=== PATIENT | female | born 1960 | race Two or more races ===

== ENCOUNTER 2024-04-06 19:00 | Emergency (ER) | payer OTHER ==
[~2024-04-06] VITALS: Ht 165.1 cm; Wt 50.3 kg
[2024-04-06 19:07] VITALS: TEMP 101.5
[2024-04-06 19:34] LABS: BASOPHILS # (AUTO) 0.1 K/uL (0.0-0.2); BASOPHILS % (AUTO) 0.5 % (0.0-2.0); EOSINOPHILS % (AUTO) 0.3 % (0.0-6.0); HEMATOCRIT 33 % (33-45); HEMOGLOBIN 11.1 g/dL (11.5-14.8); LYMPHOCYTES # (AUTO) 1.5 K/uL (0.8-4.8); LYMPHOCYTES % (AUTO) 10.2 % (20.0-44.0); MEAN CORPUSCULAR HEMOGLOBIN 29 PG (26.0-33.0); MEAN CORPUSCULAR HGB CONC 33 g/dl (31.0-36.0); MEAN CORPUSCULAR VOLUME 85 fL (82-100); MONOCYTES # (AUTO) 1.5 K/uL (0.1-1.30); MONOCYTES % (AUTO) 10.2 % (2.0-12.0); NEUTROPHILS # (AUTO) 11.6 K/uL (1.8-8.9); NEUTROPHILS % (AUTO) 78.8 % (43.0-81.0); PLATELET COUNT (AUTO) 299 K/uL (150-450); RED CELL DISTRIBUTION WIDTH 12.9 % (11.5-15.0); WHITE BLOOD COUNT (AUTO) 14.7 K/uL (4.3-11.0)
[2024-04-06 19:43] LABS: CALCIUM, SERUM 8.5 mg/dL (8.5-10.1); CARBON DIOXIDE 24 mmol/L (21-32); CHLORIDE 104 mmol/L (98-107); CREATININE 0.6 mg/dL (0.6-1.3); GLUCOSE 130 mg/dL (74-106); POTASSIUM 3.5 mmol/L (3.5-5.1); SODIUM SERUM 136 mmol/L (136-145); UREA NITROGEN, BLOOD 5 mg/dL (7-18)
[2024-04-06 19:46] LABS: INR 0.99 (0.91-1.10); PARTIAL THROMBOPLASTIN TIME 23.6 SEC (24.3-34.3); PROTHROMBIN TIME 10.2 SECS (9.2-11.1)
[2024-04-06] MEDS: IV NS 0.9% 1,000 ML BAG IV ONE (19:50)
[2024-04-06] MEDS: ACETAMINOPHEN ES 500 MG TABLET PO ONE (19:50)
[2024-04-06] MEDS: ONDANSETRON HCL/PF 4 MG/2 ML VIAL IVP ONE (19:50)
[2024-04-06 19:52] LABS: LACTIC ACID 0.7 mmol/L (0.4-2.0)
[2024-04-06 19:54] LABS: ALANINE AMINOTRANSFERASE 24 U/L (12-78); ALBUMIN 3.3 g/dL (3.4-5.0); ALKALINE PHOSPHATASE 84 U/L (46-116); ASPARTATE AMINOTRANSFERASE 17 U/L (15-37); BILIRUBIN,DIRECT 0.2 mg/dL (0.0-0.2); BILIRUBIN,TOTAL 0.5 mg/dL (0.2-1.0); TOTAL PROTEIN, SERUM 8.2 g/dL (6.4-8.2)
[2024-04-06] MEDS ORDERED: CEFTRIAXONE 1GM BAG (ER ONLY) 50 ML IV ONE (21:38)
[2024-04-06] MEDS ORDERED: AZITHROMYCIN 500 MG VIAL ONE (21:38)
[2024-04-06] MEDS: CEFTRIAXONE 1GM BAG (ER ONLY) 50 ML IV ONE (21:47)
[2024-04-06] MEDS ORDERED: ONDANSETRON HCL/PF 4 MG/2 ML VIAL ONE (22:16)
[2024-04-06] MEDS: ONDANSETRON HCL/PF 4 MG/2 ML VIAL IV ONE (22:20)
[2024-04-06] MEDS: AZITHROMYCIN 500 MG in IV D5W 250 ML IV ONE (22:22)
[2024-04-06] MEDS ORDERED: ONDA4TAB5 PO (22:25)
[2024-04-06] MEDS ORDERED: AZIT250T13 PO (22:25)
[2024-04-06] MEDS ORDERED: AMOX-430 PO (22:25)
[2024-04-06] MEDS ORDERED: IBUP-1955 PO (22:25)
[2024-04-06 23:32] VITALS: BP 121/78; O2SAT 100
== END 2024-04-06 23:32 | disposition home or self-care (01) ==
LOC: ER 19:18
DX: J18.1 Lobar pneumonia, unspecified organism (principal); R50.9 Fever, unspecified; R00.0 Tachycardia, unspecified; D72.829 Elevated white blood cell count, unspecified; R65.10 Systemic inflammatory response syndrome (SIRS) of non-infectious origin without acute organ dysfunction; D50.9 Iron deficiency anemia, unspecified
CPT/HCPCS: 99285; 96365; 71045; 96367; 96361; 96375; 93005; 96376; 84145; 85025; 80048; 87040 ×2; 83605; 80076; 36415; 84484; 85730; J2405 ×2; J7030; J7050; J0456; A4223; J0696